=== PATIENT | female | born 1965 | race Caucasian/White ===

== ENCOUNTER 2017-12-15 10:56 | Day surgery (SDC) | payer OTHER ==
[2017-12-15] MEDS ORDERED: PROPOFOL 40 ML (13:14)
== END 2017-12-15 14:34 | disposition home or self-care (01) ==
LOC: GIL 10:56
DX: K57.92 Diverticulitis of intestine, part unspecified, without perforation or abscess without bleeding (principal); Z53.9 Procedure and treatment not carried out, unspecified reason
CPT/HCPCS: 45378

== ENCOUNTER → 2017-12-15 | Day surgery (SDC) | payer OTHER | END | disposition home or self-care (01) | LOC: GIL 10:56 | DX: Z12.11 Encounter for screening for malignant neoplasm of colon (principal); K57.90 Diverticulosis of intestine, part unspecified, without perforation or abscess without bleeding | CPT/HCPCS: 45378 ==